=== PATIENT | female | born 1970 | race Hispanic/Latino ===

== ENCOUNTER 2017-01-20 15:32 | Emergency (ER) | payer OTHER ==
--- NOTE | 2017-01-20 15:56 | ED.PDOC ---
History of Present Illness - General Chief Complaint: Neck Injury/Pain Stated Complaint: Neck Pain Time Seen by Provider: 01/20/17 15:54 Source: patient, RN notes reviewed Additional Information: Pt reports about 2 weeks of left sided neck stiffness with some radiation of shock-like pain down left arm and left jaw over the past few days. Pt reported to ER for assessment to ensure there was nothing serious. Pt in no distress currently. - History of Present Illness Timing/Duration: other - 2 weeks Severity: moderate Improving Factors: rest Worsening Factors: movement Associated Symptoms: other - denies chest pain and shortness of breath Allergies/Adverse Reactions: Allergies Paroxetine [From Paxil] Allergy (Severe, Verified 11/09/16 07:41) Other Causes suicidal ideation Dicyclomine [From Bentyl] Allergy (Verified 11/09/16 07:41) Other Makes her "a bitch" Home Medications: Ambulatory Orders ALPRAZolam [Xanax] 1 mg PO HS #0 02/19/13 Fluoxetine HCl [Prozac] 60 mg PO DAILY #0 02/19/13 Lamotrigine [Lamictal] 300 mg PO HS #0 02/19/13 Olmesartan Medoxomil [Benicar] 5 mg PO DAILY #0 02/19/13 Oxybutynin Chloride [Ditropan Xl] 10 mg PO HS #0 02/19/13 hydroCHLOROthiazide [Hydrochlorothiazide] 12.5 mg PO DAILY #0 02/19/13 Insulin Glargine [Lantus Solostar] 45 units SUBCU DAILY 08/14/13 Dapagliflozin Propanediol [Farxiga] 10 mg PO DAILY 11/09/16 Dulaglutide [Trulicity] 1.2 mg SC DAILY 11/09/16 Diazepam [Valium] 5 mg PO BEDTIME PRN #3 tab 01/20/17 Review of Systems - Review of Systems Constitutional: States: no symptoms reported EENTM: States: no symptoms reported Respiratory: States: no symptoms reported Cardiology: States: no symptoms reported Gastrointestinal/Abdominal: States: no symptoms reported Genitourinary: States: no symptoms reported Musculoskeletal: States: see HPI, neck pain Skin: States: no symptoms reported Neurological: States: numbness, paresthesia - down left arm occasionally Endocrine: States: no symptoms reported Hematologic/Lymphatic: States: no symptoms reported Past Medical History (General) - Patient Medical History Hx Seizures: No Hx Stroke: No Hx Asthma: Yes Hx of COPD: No Hx Cardiac Disorders: Yes - hypercholesterolemia Hx Congestive Heart Failure: No Hx Pacemaker: No Hx Hypertension: Yes Hx Diabetes: Yes Hx MRSA: No - Vaccination History Hx Influenza Vaccination: Yes Hx Pneumococcal Vaccination: No - Social History Hx Tobacco Use: Yes - Quit 02/2014 Hx Alcohol Use: No Hx Substance Use: No Hx Depression: Yes Hx Physical Abuse: No Hx Emotional Abuse: No Family Medical History - Family History Mother Living Status: Hx Family Congestive Heart Failure: Yes Hx Cardiac Disease: Yes Hx Family Diabetes: Yes Hx Family Cancer: Yes - lymph nodes Physical Exam - Physical Exam General Appearance: Alert, Comfortable, No apparent distress, Obese Eye Exam: bilateral normal Ears, Nose, Throat: hearing grossly normal, normal pharynx Neck: supple, limited range of motion - due to left posterior neck pain, tender lateral - over left muscle belly of trapezius and sternocleidomastoid Respiratory: normal breath sounds, no respiratory distress, no accessory muscle use Cardiovascular/Chest: regular rate, rhythm Gastrointestinal/Abdominal: non tender, soft Back Exam: normal inspection Extremity: normal range of motion, non-tender 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 Negative cardiac work-up. Pt stable for discharge home with Rx for Valium at night and recommendation for continued OTC NSAID along with local heat and gentle massage. Pt given strict return precautions as well. - Results/Orders Results/Orders: 01/20/17 15:58 IV Care:Saline Lock per Protoc QSHIFT Telemetry .ONCE Sodium Chloride 0.9% (Flush) [Saline Flush Syringe] 10 ml IV PRN PRN EKG Stat Pulse Ox Stat 01/20/17 16:00 CMP [COMPLETE METABOLIC PROFILE] Stat CBC (AUTOMATED) W/AUTO DIFF Stat Laboratory Results - last 24 hr 01/20/17 16:20 WBC 6.9 RBC 5.25 Hgb 13.3 Hct 41.0 MCV 78.1 L MCH 25.4 L MCHC 32.5 L RDW 15.1 H Plt Count 208 MPV 8.2 Absolute Neuts (auto) 4.50 Absolute Lymphs (auto) 1.60 Absolute Monos (auto) 0.50 Absolute Eos (auto) 0.20 Absolute Basos (auto) 0.00 Neutrophils % 66.0 Lymphocytes % 23.3 Monocytes % 7.2 Eosinophils % 2.8 Basophils % 0.7 PT 12.1 INR 1.070 PTT (SP) 31.6 Sodium 138 Potassium 3.3 L Chloride 100 L Carbon Dioxide 30 Anion Gap 11.3 L BUN 11 Creatinine 0.80 BUN/Creatinine Ratio 13.8 Random Glucose 135 H Serum Osmolality 277.1 Calcium 9.2 Magnesium 2.0 Total Bilirubin 0.4 Direct Bilirubin 0.1 Indirect Bilirubin 0.3 AST 28 ALT 29 Alkaline Phosphatase 67 Creatine Kinase 93 CK-MB (CK-2) 0.8 CK-MB (CK-2) % Not Reportable Troponin I < 0.02 B-Natriuretic Peptide < 5.0 Serum Total Protein 7.2 Albumin 4.0 - EKG/XRAY/CT EKG: Sinus - no ST elevation Departure - Departure Clinical Impression: Neck muscle spasm, Myalgia Time of Disposition: 17:10 Disposition: Discharge to Home or Self Care Condition: Good Instructions: DI for Torticollis Referrals: Arsh Grover MD [Primary Care Provider] - 1-5 Days Prescriptions: Diazepam [Valium] 5 mg PO BEDTIME PRN #3 tab PRN Reason: Muscle Spasms Home Medications: Ambulatory Orders ALPRAZolam [Xanax] 1 mg PO HS #0 02/19/13 Fluoxetine HCl [Prozac] 60 mg PO DAILY #0 02/19/13 Lamotrigine [Lamictal] 300 mg PO HS #0 02/19/13 Olmesartan Medoxomil [Benicar] 5 mg PO DAILY #0 02/19/13 Oxybutynin Chloride [Ditropan Xl] 10 mg PO HS #0 02/19/13 hydroCHLOROthiazide [Hydrochlorothiazide] 12.5 mg PO DAILY #0 02/19/13 Insulin Glargine [Lantus Solostar] 45 units SUBCU DAILY 08/14/13 Dapagliflozin Propanediol [Farxiga] 10 mg PO DAILY 11/09/16 Dulaglutide [Trulicity] 1.2 mg SC DAILY 11/09/16 Diazepam [Valium] 5 mg PO BEDTIME PRN #3 tab 01/20/17 Additional Instructions: Warm compress/heating pad/warm showers and massage to help relax muscles in neck. Return to ER if condition worsens. Continue over the counter anti-inflammatory as needed as well (follow label instruction).
[2017-01-20] MEDS ORDERED: SODIUM CHLORIDE 0.9% (FLUSH) 10 ML SYG IV PRN (15:58)
[2017-01-20] MEDS ORDERED: ASPIRIN TABLET 325 MG TAB PO ONE (15:58)
[2017-01-20 17:45] VITALS: TEMP 98.2
[2017-01-20 18:00] VITALS: BP 121/73; O2SAT 94
== END 2017-01-20 17:30 | disposition home or self-care (01) ==
LOC: ER 15:32
DX: M62.838 Other muscle spasm (principal); M79.1 Myalgia; E78.00 Pure hypercholesterolemia, unspecified; J45.909 Unspecified asthma, uncomplicated; E11.9 Type 2 diabetes mellitus without complications; I10 Essential (primary) hypertension; Z79.4 Long term (current) use of insulin; Z79.899 Other long term (current) drug therapy; Z88.8 Allergy status to other drugs, medicaments and biological substances; Z87.891 Personal history of nicotine dependence

== ENCOUNTER → 2017-02-05 | Outpatient (CLI) | payer OTHER ==
--- NOTE | 2017-02-05 12:35 | RAD ---
EXAM DESCRIPTION: Cervical Spine,3 Views CLINICAL HISTORY: 47 years Female, CERVICALGIA IMPRESSION: 4 views of the cervical spine reveal osteophytes at C3-4, C5-6 and C6-7. These findings are compatible with degenerative change. The dens is unremarkable. Alignment of the cervical spine is unremarkable. Vertebral body height is unremarkable. Electronically signed by: Porfirio Massey MD 02/05/2017 12:34 PM CDT
== END ==
LOC: RAD 10:04
PROVIDERS: ATTEND Family Medicine
DX: Z79.899 Other long term (current) drug therapy (principal)

== ENCOUNTER → 2017-02-06 | Outpatient (CLI) | payer OTHER ==
--- NOTE | 2017-02-06 14:59 | MRI ---
EXAM DESCRIPTION: Cervical Spine CLINICAL HISTORY: NECK PAIN COMPARISON: None Available. TECHNIQUE: MRI of the cervical spine is performed according to our usual protocol. FINDINGS: There is good alignment of the cervical spine. Vertebral body stature is maintained. Craniocervical junction and the cervical spinal cord are unremarkable. C2-3: No spinal canal or neuroforaminal narrowing. C3-4: Focal posterior disc protrusion. There is minimal cord contact without myelomalacia or spinal canal narrowing. The AP diameter canal measures 1 cm. Bilateral neuroforamen are unremarkable. C4-5: Focal posterior disc protrusion without definitive cord contact. No spinal canal narrowing, neural foraminal narrowing or myelomalacia. The canal measures 1 cm in diameter. C5-6: Asymmetric to the right broad-based posterior disc protrusion and annular tear. There is no definitive cord contact. The midline diameter spinal canal is adequate at 1 cm. There is mild right neuroforaminal narrowing. The left neuroforamen is unremarkable. C6-7: Broad-based posterior disc osteophyte complex. No cord contact noted. Midline diameter spinal canal is adequate at 1 cm. Bilateral neuroforamen are unremarkable. C7-T1: No spinal canal or neuroforaminal narrowing. IMPRESSION: 1. Today's exam demonstrates mild multilevel degenerative change with borderline normal spinal canals at C3-4, C4-5, C5-6 and C6-7. At these levels AP diameter canal measures 1 cm. 2. There is cord contact from disc material at C3-4 and C5-6. Negative for myelomalacia. Electronically signed by: Porfirio Massey MD 02/06/2017 2:58 PM CDT
== END | disposition home or self-care (01) ==
LOC: MRI 11:00
PROVIDERS: ATTEND Family Medicine
DX: M54.2 Cervicalgia (principal); M47.892 Other spondylosis, cervical region

== ENCOUNTER → 2017-02-08 | Outpatient (CLI) | payer OTHER | END | disposition home or self-care (01) | LOC: LAB.O 11:55 | PROVIDERS: ATTEND Family Medicine | DX: Z79.899 Other long term (current) drug therapy (principal) ==

== ENCOUNTER → 2017-04-19 | Outpatient (CLI) | payer OTHER | END | disposition home or self-care (01) | LOC: LAB.O 07:40 | PROVIDERS: ATTEND Family Medicine | DX: E78.2 Mixed hyperlipidemia (principal); I10 Essential (primary) hypertension; E11.9 Type 2 diabetes mellitus without complications ==

== ENCOUNTER → 2017-07-19 | Outpatient (CLI) | payer OTHER | END | disposition home or self-care (01) | LOC: LAB.O 07:54 | PROVIDERS: ATTEND Family Medicine | DX: E11.9 Type 2 diabetes mellitus without complications (principal); I10 Essential (primary) hypertension ==

== ENCOUNTER → 2017-08-27 | Outpatient (CLI) | payer OTHER ==
--- NOTE | 2017-08-28 15:09 | MAM ---
EXAM DESCRIPTION: 3D Screening BILATERAL : Digital Mammography. CLINICAL HISTORY: 47 years Female SCREENING . No complaints. Remote family history of breast cancer. Postmenopausal. Has taken HRT less than five years ago. COMPARISON: 2-D digital diagnostic bilateral study 08/07/2013 and 08/24/2016. Report from prior examination also reviewed. TECHNIQUE: Bilateral CC and MLO projection full-field images, 3-D tomosynthesis digital mammographic technique. Also bilateral synthesized CC/ MLO full-field images. CAD not utilized. FINDINGS: The breast parenchymal density pattern is: Scattered areas of fibroglandular density. No skin thickening or nipple retraction bilaterally. No focal, stellate mass or density, focal asymmetry , and no suspicious microcalcifications bilaterally. Stable mammograms compared to prior study, July 2013, taking into account differences in mammographic technique IMPRESSION: BI-RADS CATEGORY: 1 - NEGATIVE FOLLOW UP: Routine digital bilateral screening, one year interval from August 2017. Written communication explaining the findings and follow-up, will be mailed to the patient and referring health care provider. According to the [employer], yearly mammograms are recommended starting at age 40 and continuing as long as a woman is in good health. Any breast change noted on a breast self-exam should be reported promptly to the patient's healthcare provider. Breast MRI is recommended for women with an approximately 20-25% or greater lifetime risk of breast cancer, including women with a strong family history of breast or ovarian cancer and women who have been treated for Hodgkin's disease. A negative mammographic report should not delay tissue diagnosis in patients with significant clinical history or physical findings. Extremely dense breast tissue limits the sensitivity of digital mammography. Electronically signed by: Christian Kaur MD 08/28/2017 3:08 PM CDT
== END | disposition home or self-care (01) ==
LOC: MAMMO 14:05
PROVIDERS: ATTEND Family Medicine
DX: Z12.31 Encounter for screening mammogram for malignant neoplasm of breast (principal)
CPT/HCPCS: 77063; G0202

== ENCOUNTER → 2017-12-05 | Outpatient (CLI) | payer OTHER | LOC: LAB.O 08:18 | PROVIDERS: ATTEND Family Medicine | DX: I10 Essential (primary) hypertension (principal); E11.9 Type 2 diabetes mellitus without complications ==

== ENCOUNTER → 2017-12-11 | Outpatient (CLI) | payer OTHER | LOC: RESP 08:20 | PROVIDERS: ATTEND Family Medicine | DX: I10 Essential (primary) hypertension (principal) ==

== ENCOUNTER → 2018-01-29 | Outpatient (CLI) | payer OTHER ==
--- NOTE | 2018-01-30 07:26 | RAD ---
EXAM DESCRIPTION: Foot,Left 3 Views CLINICAL HISTORY: 48 years Female, PAIN COMPARISON: None. FINDINGS: 3 views of the left foot show no acute fracture or malalignment. The joint spaces are well-maintained. There are large calcaneal enthesophytes at the insertion sites of the plantar fascia and Achilles tendon. No radiopaque foreign body or soft tissue gas. IMPRESSION: Calcaneal spurring, otherwise unremarkable exam. Electronically signed by: Benoit Combs MD 01/30/2018 7:24 AM CDT
== END ==
LOC: RAD 08:17
PROVIDERS: ATTEND Family Medicine
DX: M25.572 Pain in left ankle and joints of left foot (principal); M77.32 Calcaneal spur, left foot

== ENCOUNTER → 2018-04-08 | Outpatient (CLI) | payer OTHER | LOC: LAB.O 08:18 | PROVIDERS: ATTEND Family Medicine | DX: I10 Essential (primary) hypertension (principal); E11.9 Type 2 diabetes mellitus without complications ==

== ENCOUNTER → 2018-07-25 | Outpatient (CLI) | payer OTHER | LOC: LAB.O 08:14 | PROVIDERS: ATTEND Family Medicine | DX: I10 Essential (primary) hypertension (principal); E11.9 Type 2 diabetes mellitus without complications ==

== ENCOUNTER → 2018-09-06 | Outpatient (CLI) | payer OTHER ==
--- NOTE | 2018-09-09 10:10 | MAM ---
EXAM DESCRIPTION: 3D Screening BILATERAL : Digital Mammography. CLINICAL HISTORY: 48 years Female SCREENING . No complaints. Remote family history of breast cancer. Childbirth. Postmenopausal 3 years. Has taken HRT more than 5 years ago.. Lifetime risk of developing breast cancer (Tyrer-Cuzick model)(%): 8.7. COMPARISON: prior. No prior reports available. TECHNIQUE: Bilateral CC and MLO projection full-field images, Digital tomosynthesis mammographic technique. Bilateral digital 2-D full-field MLO images. CAD not utilized. FINDINGS: The breast parenchymal density pattern is: Scattered areas of fibroglandular density. No skin thickening or nipple retraction. Bilateral axillary lymph nodes. Small bilateral solitary microcalcifications. Fibroglandular tissues more prominent in the right breast, but stable No new focal, stellate mass or density, focal asymmetry , and no suspicious microcalcifications bilaterally Stable mammograms compared to prior study. Taking into account, differences in mammographic technique. IMPRESSION: Benign exam. BIRAD CATEGORY: 2 BENIGN FINDINGS. RECOMMENDATIONS: FOLLOW UP: Routine digital bilateral screening, one year interval from August 2018. Written communication explaining the IMPRESSION and follow-up, will be mailed to the patient and referring health care provider. According to the [employer], yearly mammograms are recommended starting at age 40 and continuing as long as a woman is in good health. Any breast change noted on a breast self-exam should be reported promptly to the patient's healthcare provider. Breast MRI is recommended for women with an approximately 20-25% or greater lifetime risk of breast cancer, including women with a strong family history of breast or ovarian cancer and women who have been treated for Hodgkin's disease. A negative mammographic report should not delay tissue diagnosis in patients with significant clinical history or physical findings. Extremely dense breast tissue limits the sensitivity of digital mammography. Electronically signed by: Christian Kaur MD 09/09/2018 10:08 AM CDT
== END ==
LOC: MAMMO 09:00
PROVIDERS: ATTEND Obstetrics & Gynecology
DX: Z12.31 Encounter for screening mammogram for malignant neoplasm of breast (principal)

== ENCOUNTER → 2018-11-27 | Outpatient (CLI) | payer BC | LOC: LAB.O 08:18 | PROVIDERS: ATTEND Family Medicine | DX: I10 Essential (primary) hypertension (principal); E11.9 Type 2 diabetes mellitus without complications ==

== ENCOUNTER → 2019-01-28 | Outpatient (CLI) | payer BC | LOC: YCFC.O 12:07 | PROVIDERS: ATTEND Nurse Practitioner Family | DX: N39.0 Urinary tract infection, site not specified (principal) ==

== ENCOUNTER → 2019-02-27 | Outpatient (CLI) | payer BC | LOC: LAB.O 09:17 | PROVIDERS: ATTEND Family Medicine | DX: I10 Essential (primary) hypertension (principal); E11.9 Type 2 diabetes mellitus without complications ==

== ENCOUNTER 2019-06-20 19:24 | Emergency (ER) | payer BC ==
--- NOTE | 2019-06-20 20:07 | ED.PDOC ---
History of Present Illness - General Chief Complaint: Lower Extremity Injury Stated Complaint: pain in left calf Time Seen by Provider: 06/20/19 19:57 Source: patient Exam Limitations: no limitations - History of Present Illness Initial Comments: the patient is a 49-year-old female presenting to the emergency room secondary to pain in her left calf for the last couple of days. There is pain with dorsiflexion of the foot. There is tenderness to palpation posteriorly. I do not definitely feel a palpable cord. No bruising. No history of trauma. She also does have some plantar fasciitis on that foot. She has had a history of a DVT in the right lower extremity many years ago. She is not currently on a blood thinner. No recent medication changes. No recent periods of immobility.no chest pain shortness of breath or palpitations. Vital signs are within normal limits. No hypoxia. Timing/Duration: other - 48 hours Severity: mild Improving Factors: nothing Worsening Factors: movement Associated Symptoms: denies symptoms Allergies/Adverse Reactions: Allergies Paroxetine [From Paxil] Allergy (Severe, Verified 11/09/16 07:41) Other Causes suicidal ideation Dicyclomine [From Bentyl] Allergy (Verified 11/09/16 07:41) Other Makes her "a bitch" Home Medications: Ambulatory Orders ALPRAZolam [Xanax] 1 mg PO HS #0 02/19/13 Fluoxetine HCl [Prozac] 60 mg PO DAILY #0 02/19/13 Lamotrigine [Lamictal] 300 mg PO HS #0 02/19/13 Olmesartan Medoxomil [Benicar] 5 mg PO DAILY #0 02/19/13 Oxybutynin Chloride [Ditropan Xl] 10 mg PO HS #0 02/19/13 hydroCHLOROthiazide [Hydrochlorothiazide] 12.5 mg PO DAILY #0 02/19/13 Insulin Glargine [Lantus Solostar] 45 units SUBCU DAILY 08/14/13 Dapagliflozin Propanediol [Farxiga] 10 mg PO DAILY 11/09/16 Pantoprazole Tablet [Protonix] 40 mg PO DAILY 01/24/17 Rosuvastatin Calcium [Crestor] 40 mg PO BEDTIME 01/24/17 Review of Systems - Review of Systems Constitutional: States: no symptoms reported EENTM: States: no symptoms reported Respiratory: States: no symptoms reported Cardiology: States: no symptoms reported Gastrointestinal/Abdominal: States: no symptoms reported Genitourinary: States: no symptoms reported Musculoskeletal: States: see HPI Skin: States: no symptoms reported Neurological: States: no symptoms reported Endocrine: States: no symptoms reported All other Systems: No Change from Baseline Past Medical History (General) - Patient Medical History Hx Seizures: No Hx Stroke: No Hx Asthma: Yes Hx of COPD: No Hx Cardiac Disorders: Yes - hypercholesterolemia Hx Congestive Heart Failure: No Hx Pacemaker: No Hx Hypertension: Yes Hx Diabetes: Yes Hx Gastroesophageal Reflux: Yes Hx Cancer: No Hx Hepatitis C: No Hx MRSA: No Surgical History: cholecystectomy, other - Vaccination History Hx Tetanus, Diphtheria Vaccination: Yes Hx Influenza Vaccination: Yes Hx Pneumococcal Vaccination: No - Social History Hx Tobacco Use: No Hx Chewing Tobacco Use: No Hx Alcohol Use: No Hx Substance Use: No Hx Substance Use Treatment: No Hx Depression: Yes Hx Physical Abuse: No Hx Emotional Abuse: No Hx Suspected Abuse: No - Female History Patient : No - Triage Comment ED Triage Comment: Pt reports started having pain in her left plantar foot earlier in week, and now pain more up in calf area. Pt reports pain is increasing. Upon flexing foot and palpating calf, pt reported pain and grimaced. Calves appear same on inspection, no redness noted. Palpable pulses bilaterally, +2. Family Medical History - Family History Mother Living Status: Hx Family Congestive Heart Failure: Yes Hx Cardiac Disease: Yes Hx Family Diabetes: Yes Hx Family Cancer: Yes - lymph nodes Physical Exam - Physical Exam General Appearance: Alert, Comfortable, No apparent distress Eye Exam: bilateral normal Ears, Nose, Throat: hearing grossly normal Neck: full range of motion Respiratory: lungs clear, normal breath sounds, no respiratory distress, no accessory muscle use Cardiovascular/Chest: normal peripheral pulses, no edema Peripheral Pulses: radial,right: 2+, radial,left: 2+, dorsalis pedis,right: 2+, dorsalis pedis,left: 2+ Gastrointestinal/Abdominal: other - obese Rectal Exam: deferred Back Exam: no CVA tenderness, no vertebral tenderness Extremity: normal range of motion, normal capillary refill, calf tenderness, pedal edema 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 Clinical presentation is concerning for the possibility of a DVT. She has had a DVT in the other leg in the past. The patient is being loaded on xarelto tonight. We do not have vascular ultrasound here tonight. A call will be made in the morning to see if she can have an ultrasound tomorrow. If not then she will need to get the ultrasound Sunday. If that is the case, then she is to fill her prescription for xarelto 15 mg twice daily and take it until she gets the ultrasound. ER warnings were given for any worsening. Questions have been answered regarding the possible condition and the medicine. Departure - Departure Clinical Impression: Left leg pain, Left leg swelling Disposition: Discharge to Home or Self Care Condition: Fair Departure Forms: ED Discharge - Pt. Copy, Patient Portal Self Enrollment Diet: regular diet Activity: increase activity as tolerated Referrals: Arsh Grover MD [Primary Care Provider] - 1-2 Weeks Home Medications: Ambulatory Orders ALPRAZolam [Xanax] 1 mg PO HS #0 02/19/13 Fluoxetine HCl [Prozac] 60 mg PO DAILY #0 02/19/13 Lamotrigine [Lamictal] 300 mg PO HS #0 02/19/13 Olmesartan Medoxomil [Benicar] 5 mg PO DAILY #0 02/19/13 Oxybutynin Chloride [Ditropan Xl] 10 mg PO HS #0 02/19/13 hydroCHLOROthiazide [Hydrochlorothiazide] 12.5 mg PO DAILY #0 02/19/13 Insulin Glargine [Lantus Solostar] 45 units SUBCU DAILY 08/14/13 Dapagliflozin Propanediol [Farxiga] 10 mg PO DAILY 11/09/16 Pantoprazole Tablet [Protonix] 40 mg PO DAILY 01/24/17 Rosuvastatin Calcium [Crestor] 40 mg PO BEDTIME 01/24/17 Additional Instructions: the patient is a 49-year-old female presenting with left calf pain for the last couple of days. Clinical presentation is concerning for the possibility of a DVT. She has had a DVT in the other leg in the past. The patient is being loaded on xarelto tonight. We do not have vascular ultrasound here [facility]. A call will be made in the morning to see if she can have an ultrasound tomorrow. If not then she will need to get the ultrasound Sunday. If that is the case, then she is to fill her prescription for xarelto 15 mg twice daily and take it until she gets the ultrasound. ER warnings were given for any worsening. Questions have been answered regarding the possible condition and the medicine.
[2019-06-20] MEDS: RIVAROXABAN 10 MG TAB PO ONE (20:10)
[2019-06-20 20:18] VITALS: BP 114/78; TEMP 97.9; O2SAT 97
== END 2019-06-20 20:14 | disposition home or self-care (01) ==
LOC: ER 19:24
DX: M79.662 Pain in left lower leg (principal); M79.89 Other specified soft tissue disorders; M72.2 Plantar fascial fibromatosis; F32.9 Major depressive disorder, single episode, unspecified; J45.909 Unspecified asthma, uncomplicated; E78.00 Pure hypercholesterolemia, unspecified; I10 Essential (primary) hypertension; E11.9 Type 2 diabetes mellitus without complications; K21.9 Gastro-esophageal reflux disease without esophagitis; Z86.718 Personal history of other venous thrombosis and embolism; Z79.4 Long term (current) use of insulin; Z79.899 Other long term (current) drug therapy; Z88.8 Allergy status to other drugs, medicaments and biological substances

== ENCOUNTER → 2019-06-23 | Outpatient (CLI) | payer BC ==
--- NOTE | 2019-06-23 13:12 | US ---
EXAM DESCRIPTION: Venous,Lower Extremity LT: ULTRASOUND. CLINICAL HISTORY: DVT. Left lower extremity. COMPARISON: None Available. TECHNIQUE: Peter-scale and doppler sonographic evaluation of the deep venous system of the left lower extremity. FINDINGS: Doppler evaluation shows normal color flow and normal phasicity and augmentation of the left common femoral vein, femoral vein, popliteal vein, greater saphenous vein, peroneal, and posterior tibial vein. The left lower extremity deep veins were completely compressible; normal occlusion with transducer pressure. Peter-scale survey showed no echogenic thrombus within these veins. IMPRESSION: 1. Duplex ultrasound evaluation of the left lower extremity deep venous system showing no evidence of thrombosis. Electronically signed by: Christian Kaur MD 06/23/2019 1:11 PM CDT
== END ==
LOC: US 08:58
PROVIDERS: ATTEND Family Medicine
DX: M79.662 Pain in left lower leg (principal); M79.89 Other specified soft tissue disorders; M72.2 Plantar fascial fibromatosis; F32.9 Major depressive disorder, single episode, unspecified; J45.909 Unspecified asthma, uncomplicated; E78.00 Pure hypercholesterolemia, unspecified; I10 Essential (primary) hypertension; E11.9 Type 2 diabetes mellitus without complications; K21.9 Gastro-esophageal reflux disease without esophagitis; Z86.718 Personal history of other venous thrombosis and embolism; Z79.4 Long term (current) use of insulin; Z79.899 Other long term (current) drug therapy; Z88.8 Allergy status to other drugs, medicaments and biological substances

== ENCOUNTER → 2019-06-26 | Outpatient (CLI) | payer BC | LOC: GMAM 14:11 | PROVIDERS: ATTEND Family Medicine | DX: M79.605 Pain in left leg (principal) ==

== ENCOUNTER → 2019-06-30 | Outpatient (CLI) | payer BC ==
--- NOTE | 2019-07-01 13:46 | MRI ---
Study: MRI of the Left Tibia/Fibula. Indication: PAIN IN LEFT LEG Technique: Multiplanar, multi sequence MRI of the left tibial/fibula was obtained with and without intravenous contrast. Comparison: None. Findings: Examination technically limited due to poor fat saturation and abnormal band artifact across the proximal aspects of the left lower leg. Mild circumferential subcutaneous edema about the left lower leg without drainable fluid collection. No acute fracture of the left tibia/fibula. No muscle tear identified. No pathologic enhancement. Impression: Mild subcutaneous edema throughout the left lower leg without drainable fluid collection. No acute fracture of the tibia/fibula. No muscle tear of the left lower leg. Electronically signed by: Bartolo Barros MD 07/01/2019 1:44 PM CDT
== END ==
LOC: MRI 10:43
PROVIDERS: ATTEND Family Medicine
DX: M79.605 Pain in left leg (principal)

== ENCOUNTER → 2019-07-04 | Outpatient (CLI) | payer BC | LOC: LAB.O 08:07 | PROVIDERS: ATTEND Family Medicine | DX: I42.5 Other restrictive cardiomyopathy (principal); I42.8 Other cardiomyopathies; I10 Essential (primary) hypertension; E11.9 Type 2 diabetes mellitus without complications ==

== ENCOUNTER → 2019-09-09 | Outpatient (CLI) | payer BC ==
--- NOTE | 2019-09-10 20:18 | MAM ---
EXAM DESCRIPTION: 3D Screening BILATERAL : Digital Mammography. CLINICAL HISTORY: 49 years Female ANNUAL SCREENING . No complaints. No personal or family history history of breast cancer. Remote family history of ovarian cancer. Menarche age 10. Childbirth. Postmenopausal 5 years. HRT 5 or more years ago. Lifetime risk of developing breast cancer (Tyrer-Cuzick model)(%): 8.5. COMPARISON: Bilateral screening digital breast tomosynthesis 06 September 2018. 27 August 2017.. TECHNIQUE: Bilateral CC and MLO projection full-field images, digital tomosynthesis mammographic technique. Bilateral digital 2-D full-field MLO images. CAD not available for tomosynthesis or 2-D images. FINDINGS: The breast parenchymal density pattern is: Scattered areas of fibroglandular density. Nodular-type. No skin thickening or nipple retraction. Skin mole marker right breast. Bilateral solitary microcalcifications. Bilateral axillary lymph nodes. Denser tissue more retroareolar and laterally. No new focal, stellate mass or density, focal asymmetry , and no suspicious microcalcifications laterally. Stable mammograms compared to prior study. IMPRESSION: Benign exam. BIRAD CATEGORY: 2 BENIGN FINDINGS. RECOMMENDATIONS: FOLLOW UP: Routine digital bilateral mammographic screening, one year interval from August 2019. Written communication explaining the IMPRESSION and follow-up, will be mailed to the patient and referring health care provider. According to the [employer], yearly mammograms are recommended starting at age 40 and continuing as long as a woman is in good health. Any breast change noted on a breast self-exam should be reported promptly to the patient's healthcare provider. Breast MRI is recommended for women with an approximately 20-25% or greater lifetime risk of breast cancer, including women with a strong family history of breast or ovarian cancer and women who have been treated for Hodgkin's disease. A negative mammographic report should not delay tissue diagnosis in patients with significant clinical history or physical findings. Extremely dense breast tissue limits the sensitivity of digital mammography. Electronically signed by: Christian Kaur MD 09/10/2019 8:16 PM CDT
== END ==
LOC: MAMMO 09:00
PROVIDERS: ATTEND Family Medicine
DX: Z12.31 Encounter for screening mammogram for malignant neoplasm of breast (principal)

== ENCOUNTER → 2019-09-23 | Outpatient (CLI) | payer BC ==
--- NOTE | 2019-09-23 09:13 | RAD ---
Study: 6 Views of the Right Foot and Right Ankle. Indication: ANKLE PAIN Comparison: December 15, 2011. Impression: Prior repair of the medial malleolus with surgical screw. Millimetric ossifications inferior to the medial malleolus and lateral malleolus indicating remote avulsive injuries. Mild tibiotalar joint osteophytes. Calcaneal spurring at the Achilles tendon insertion and plantar fascia origin. Soft tissue swelling about the ankle. No acute fracture of the right foot or ankle. Mild scattered osteoarthritis of the midfoot. Tiny accessory navicular bone. Mild osteoarthritis first MTP joint. Electronically signed by: Bartolo Barros MD 09/23/2019 9:12 AM [facility] [[email or web address]]
--- NOTE | 2019-09-23 09:14 | RAD ---
Study: 6 Views of the Right Foot and Right Ankle. Indication: ANKLE PAIN Comparison: December 15, 2011. Impression: Prior repair of the medial malleolus with surgical screw. Millimetric ossifications inferior to the medial malleolus and lateral malleolus indicating remote avulsive injuries. Mild tibiotalar joint osteophytes. Calcaneal spurring at the Achilles tendon insertion and plantar fascia origin. Soft tissue swelling about the ankle. No acute fracture of the right foot or ankle. Mild scattered osteoarthritis of the midfoot. Tiny accessory navicular bone. Mild osteoarthritis first MTP joint. Electronically signed by: Bartolo Barros MD 09/23/2019 9:12 AM [facility]
== END ==
LOC: RAD 07:51
PROVIDERS: ATTEND Family Medicine
DX: M19.071 Primary osteoarthritis, right ankle and foot (principal); M77.31 Calcaneal spur, right foot; Z98.890 Other specified postprocedural states

== ENCOUNTER → 2019-11-07 | Outpatient (CLI) | payer BC | LOC: LAB.O 07:34 | PROVIDERS: ATTEND Family Medicine | DX: I10 Essential (primary) hypertension (principal); E11.9 Type 2 diabetes mellitus without complications ==

== ENCOUNTER → 2019-11-19 | Outpatient (CLI) | payer BC | LOC: LAB.O 12:26 | PROVIDERS: ATTEND Family Medicine | DX: R23.3 Spontaneous ecchymoses (principal) ==

== ENCOUNTER → 2020-02-06 | Outpatient (CLI) | payer BC | LOC: LAB.O 07:50 | PROVIDERS: ATTEND Family Medicine | DX: I10 Essential (primary) hypertension (principal); E11.9 Type 2 diabetes mellitus without complications; E78.2 Mixed hyperlipidemia ==

== ENCOUNTER 2020-04-01 11:30 | Emergency (ER) | payer BC, OTHER ==
[2020-04-01 11:39] VITALS: TEMP 97.7
[2020-04-01] MEDS ORDERED: KETOROLAC TROMETHAMINE INJ 30 MG/ML VIAL IM ONE (12:31)
--- NOTE | 2020-04-01 12:36 | ED.PDOC ---
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 There was no loss of consciousness. The pain is mild in intensity. It is throbbing in nature. It is worse with palpation or with flexing of the knee.. Cooling it seems to make the pain better. The pain is nonradiating. Occurred: just prior to arrival Pain - Lower Extremity: moderate: Left Knee Method of Injury: fell Improving Factors: cold therapy Worsening Factors: movement Allergies/Adverse Reactions: Allergies Paroxetine [From Paxil] Allergy (Severe, Verified 04/01/20 11:39) Other Causes suicidal ideation Dicyclomine [From Bentyl] Allergy (Verified 04/01/20 11:39) Other Makes her "a bitch" Home Medications: Ambulatory Orders ALPRAZolam [Xanax] 1 mg PO HS #0 02/19/13 Fluoxetine HCl [Prozac] 60 mg PO DAILY #0 02/19/13 Lamotrigine [Lamictal] 300 mg PO HS #0 02/19/13 Olmesartan Medoxomil [Benicar] 5 mg PO DAILY #0 02/19/13 Oxybutynin Chloride [Ditropan Xl] 10 mg PO HS #0 02/19/13 hydroCHLOROthiazide [Hydrochlorothiazide] 12.5 mg PO DAILY #0 02/19/13 Insulin Glargine [Lantus Solostar] 45 units SUBCU DAILY 08/14/13 Dapagliflozin Propanediol [Farxiga] 10 mg PO DAILY 11/09/16 Pantoprazole Tablet [Protonix] 40 mg PO DAILY 01/24/17 Rosuvastatin Calcium [Crestor] 40 mg PO BEDTIME 01/24/17 Review of Systems - Review of Systems Constitutional: States: no symptoms reported, see HPI. Denies: chills, fever, malaise, weakness EENTM: States: no symptoms reported Respiratory: States: no symptoms reported Cardiology: States: no symptoms reported Gastrointestinal/Abdominal: States: no symptoms reported Genitourinary: States: no symptoms reported Musculoskeletal: States: see HPI, joint pain - Left knee. Denies: back pain Neurological: States: no symptoms reported. Denies: numbness, paresthesia, tingling, tremors, weakness Endocrine: States: no symptoms reported Hematologic/Lymphatic: States: no symptoms reported All other Systems: Reviewed and Negative, No Change from Baseline Past Medical History (General) - Patient Medical History Hx Seizures: No Hx Stroke: No Hx Asthma: Yes Hx of COPD: No Hx Cardiac Disorders: Yes - hypercholesterolemia Hx Congestive Heart Failure: No Hx Pacemaker: No Hx Hypertension: Yes Hx Diabetes: Yes Hx Gastroesophageal Reflux: Yes Hx Cancer: No Hx Hepatitis C: No Hx MRSA: No Surgical History: cholecystectomy - Vaccination History Hx Tetanus, Diphtheria Vaccination: Yes Hx Influenza Vaccination: Yes Hx Pneumococcal Vaccination: No Immunizations Up to Date: Yes - Social History Hx Tobacco Use: No Hx Chewing Tobacco Use: No Hx Alcohol Use: No Hx Substance Use: No Hx Substance Use Treatment: No Hx Depression: Yes Hx Physical Abuse: No Hx Emotional Abuse: No Hx Suspected Abuse: No - Female History Patient is a Female of Child Bearing Age (10 -59 yrs old): No Patient : No Family Medical History - Family History Mother Living Status: Hx Family Congestive Heart Failure: Yes Hx Cardiac Disease: Yes Hx Family Diabetes: Yes Hx Family Cancer: Yes - lymph nodes Physical Exam - Physical Exam General Appearance: Alert, Anxious, Obese, Well Developed, Well Groomed, Well Hydrated, Well Nourished Eyes, Ears, Nose, Throat: PERRL/EOMI, normal ENT inspection, pharynx normal Neck: non-tender, full range of motion, supple, normal inspection Cardiovascular/Respiratory: regular rate, rhythm, no M/R/G, normal peripheral pulses, no JVD, normal breath sounds, no respiratory distress Gastrointestinal/Abdominal: non-tender, no organomegaly Back: normal inspection, no CVA tenderness, no vertebral tenderness Thigh/Hip: normal inspection, non-tender, no evidence of injury, normal ROM Leg: normal inspection, non-tender, no evidence of injury, normal ROM Knee: bone tenderness - At the inferior base of the patella., limited ROM - Secondary to pain Ankle: normal inspection, non-tender, no evidence of injury, normal ROM Foot: normal inspection, non-tender, no evidence of injury Neuro/Tendon: normal sensation, normal motor functions Mental Status: alert, oriented x 3 Skin: normal color, warm/dry Progress - Progress Progress: Differential diagnosis: Patellar fracture, tendon injury, knee contusion, cartilage injury among others. 04/01/20 12:55 Patient improved after IM Toradol. X-rays negative for fracture. Plan knee brace and discharge home with follow-up with PCP. I discussed the plan of care with the patient she voices understanding and agreement. Memo Renteria M.D. #[id number] - Results/Orders Results/Orders: EXAM DESCRIPTION: Left knee, 3 radiographs CLINICAL HISTORY: Fall injury. Knee pain FINDINGS/ IMPRESSION: Normal mineralization. Normal alignment No focal demineralization or inflammatory erosion. No fracture or acute osteochondral lesion. Mild lateral patellar positioning relative to the trochlea on the patellar sunrise view with lateral patellar tilt. Enthesophyte at the quadriceps attachment to the patella and patellar tendon attachment to the tibia. Small suprapatellar joint effusion Electronically signed by: Arsh Caro MD 04/01/2020 12:42 Departure - Departure Clinical Impression: Knee contusion Qualifiers: Encounter type: initial encounter Laterality: left Qualified Code(s): S80.02XA - Contusion of left knee, initial encounter Fall Qualifiers: Encounter type: initial encounter Qualified Code(s): W19.XXXA - Unspecified fall, initial encounter Knee pain, left Qualifiers: Chronicity: acute Qualified Code(s): M25.562 - Pain in left knee Time of Disposition: 12:58 Disposition: Discharge to Home or Self Care Condition: Good Departure Forms: ED Discharge - Pt. Copy, Patient Portal Self Enrollment Instructions: DI for Knee Pain Diet: resume usual diet Activity: increase activity as tolerated, walking as tolerated, no pushing/pulling with affected limb Referrals: Arsh Grover MD [Primary Care Provider] - 1-5 Days Home Medications: Ambulatory Orders ALPRAZolam [Xanax] 1 mg PO HS #0 02/19/13 Fluoxetine HCl [Prozac] 60 mg PO DAILY #0 02/19/13 Lamotrigine [Lamictal] 300 mg PO HS #0 02/19/13 Olmesartan Medoxomil [Benicar] 5 mg PO DAILY #0 02/19/13 Oxybutynin Chloride [Ditropan Xl] 10 mg PO HS #0 02/19/13 hydroCHLOROthiazide [Hydrochlorothiazide] 12.5 mg PO DAILY #0 02/19/13 Insulin Glargine [Lantus Solostar] 45 units SUBCU DAILY 08/14/13 Dapagliflozin Propanediol [Farxiga] 10 mg PO DAILY 11/09/16 Pantoprazole Tablet [Protonix] 40 mg PO DAILY 01/24/17 Rosuvastatin Calcium [Crestor] 40 mg PO BEDTIME 01/24/17
--- NOTE | 2020-04-01 12:43 | RAD ---
EXAM DESCRIPTION: Left knee, 3 radiographs CLINICAL HISTORY: Fall injury. Knee pain FINDINGS/ IMPRESSION: Normal mineralization. Normal alignment No focal demineralization or inflammatory erosion. No fracture or acute osteochondral lesion. Mild lateral patellar positioning relative to the trochlea on the patellar sunrise view with lateral patellar tilt. Enthesophyte at the quadriceps attachment to the patella and patellar tendon attachment to the tibia. Small suprapatellar joint effusion Electronically signed by: Arsh Caro MD 04/01/2020 12:42 PM CDT
[2020-04-01 13:19] VITALS: BP 115/70; O2SAT 96
== END 2020-04-01 13:19 | disposition home or self-care (01) ==
LOC: ER 11:30
DX: S80.02XA Contusion of left knee, initial encounter (principal); M25.562 Pain in left knee; E11.9 Type 2 diabetes mellitus without complications; I10 Essential (primary) hypertension; Z79.899 Other long term (current) drug therapy; Z79.4 Long term (current) use of insulin; W19.XXXA Unspecified fall, initial encounter; Y92.239 Unspecified place in hospital as the place of occurrence of the external cause; Y99.0 Civilian activity done for income or pay
CPT/HCPCS: 73562; J1885

== ENCOUNTER → 2020-08-17 | Outpatient (CLI) | payer BC ==
--- NOTE | 2020-08-18 16:46 | US ---
EXAM DESCRIPTION: 3D Diagnostic, Bilateral (accession [id number]), Breast,Right (accession [id number]): Ultrasound CLINICAL HISTORY: 50 yearsFemaleLUMP LATERAL to RIGHT BREAST . Tender palpable mass lateral to the right breast in a skin fold, developed in the past week. No complaints. Remote family history of ovarian cancer but not breast cancer. Menarche age 10. Childbirth age 18. Menopause age 44. HRT. Lifetime risk of developing breast cancer (Tyrer-Cuzick model)(%): 8.3. COMPARISON: Bilateral screening digital breast tomosynthesis August 2019 and August 2018. TECHNIQUE: Bilateral CC and MLO projection full-field images, right breast LM projection full-field images, digital tomosynthesis technique. CC and MLO and right breast LM 2-D digital full-field images: CAD available for 2-D images.. Transcutaneous scanning of the region of interest lateral to the right breast utilizing mistry-scale and Doppler modes. Scanning performed by the review coordinator ; observation by Dr. Kaur. FINDINGS: The breast parenchymal density pattern is: Scattered areas of fibroglandular density. No skin thickening or nipple retraction regular skin marker at approximately the 7:00- 8:00 position of the lateral right breast associated with increased tissue density and focal asymmetry seen only on the MLO and LM projections. Not associated with calcifications. Not seen on CC or exaggerated lateral CC projections. Solitary microcalcifications. Axillary nodes.. No suspicious microcalcifications bilaterally. Ultrasound: Scanning of the region of interest lateral to the axillary tail and lower outer quadrant of the right breast. Irregular hypoechoic and anechoic complex fluid collection subcutaneous adipose tissue in the region of palpation and skin discoloration. Wider than tall orientation with posterior acoustic enhancement and edge shadowing. Minimal vascularity abutting the margins of the mass. Dimensions are 2.7 x 1.9 x 0.9 cm, short axis is perpendicular, and long axis is parallel to the skin. This is most likely an infected sebaceous gland, sweating gland or hair follicle. Small tract is directed toward the skin. Smaller hypoechoic circumscribed lymph node with central to eccentric echogenicity measuring 15 x 5 mm in the right axilla and a second lymph node measures 12 x 6 mm in the right axilla. IMPRESSION: Benign exam. BIRAD CATEGORY: 2 BENIGN FINDINGS. RECOMMENDATIONS: FOLLOW UP: Routine digital bilateral mammographic screening, one year interval from August 2020. Clinical follow-up of the complex fluid collection lateral to the posterior right breast. Written communication explaining the IMPRESSION and follow-up, will be mailed to the patient and referring health care provider. According to the [employer], yearly mammograms are recommended starting at age 40 and continuing as long as a woman is in good health. Any breast change noted on a breast self-exam should be reported promptly to the patient's healthcare provider. Breast MRI is recommended for women with an approximately 20-25% or greater lifetime risk of breast cancer, including women with a strong family history of breast or ovarian cancer and women who have been treated for Hodgkin's disease. A negative mammographic report should not delay tissue diagnosis in patients with significant clinical history or physical findings. Extremely dense breast tissue limits the sensitivity of digital mammography. Electronically signed by: Christian Kaur MD 08/18/2020 4:44 PM CDT
== END ==
LOC: US 07:51
PROVIDERS: ATTEND Nurse Practitioner Family
DX: N63.13 Unspecified lump in the right breast, lower outer quadrant (principal)
CPT/HCPCS: 76641; 77066; G0279

== ENCOUNTER → 2020-12-16 | Outpatient (CLI) | payer SELFPAY | LOC: LAB.O 08:29 | PROVIDERS: ATTEND Family Medicine | DX: D64.9 Anemia, unspecified (principal) ==

== ENCOUNTER → 2020-12-21 | Outpatient (CLI) | payer BC | LOC: GMAM 11:18 | PROVIDERS: ATTEND Family Medicine | DX: D64.9 Anemia, unspecified (principal) ==